=== PATIENT | male | born 1960 | race Caucasian/White ===

== ENCOUNTER 2017-01-29 01:26 | Emergency (ER) | payer OTHER ==
[~2017-01-29] VITALS: Ht 190.5 cm; Wt 122.7 kg
[2017-01-29 01:29] VITALS: TEMP 98.1
[2017-01-29] MEDS ORDERED: FLOMAX 0.40.4 MG/CAP PO (03:48)
[2017-01-29] MEDS ORDERED: ZYRTEC5 MG PO (03:48)
[2017-01-29] MEDS ORDERED: BACTRIM DS 8001 TAB PO (03:48)
[2017-01-29 03:58] LABS: PH 6 (5-8); SQUAMOUS EPITHELIAL None Seen /hpf; URINE APPEARANCE Clear; URINE BACTERIA None Seen /hpf; URINE BILIRUBIN Negative (NEGATIVE); URINE BLOOD 1+ (NEGATIVE); URINE COLOR Yellow; URINE GLUCOSE Negative (NEGATIVE); URINE KETONE Negative (NEGATIVE); URINE UROBILINOGEN Negative (NEGATIVE)
[2017-01-29 03:59] LABS: URINE WBC 0-2 /hpf
[2017-01-29 05:47] VITALS: BP 142/90; PULSE 63
== END 2017-01-29 06:01 | disposition home or self-care (01) ==
LOC: COL.ER 01:26
PROVIDERS: Nurse Practitioner
DX: N41.9 Inflammatory disease of prostate, unspecified (principal); R33.8 Other retention of urine
CPT/HCPCS: J1170; J2270

== ENCOUNTER → 2020-12-14 | Outpatient (CLI) | payer BC ==
[~2020-12-14] MED LIST: BACTRIM DS 8001 TAB PO; FLOMAX 0.40.4 MG/CAP PO; ZYRTEC5 MG PO
== END ==
LOC: COL.VAS 07:36
DX: I10 Essential (primary) hypertension (principal)